=== PATIENT | male | born 2000 | race Two or more races ===

== ENCOUNTER 2024-05-16 02:45 | Emergency (ER) | payer SELFPAY ==
[2024-05-16 03:18] LABS: BASOPHILS ABSOLUTE AUTO 0.05 K/uL (0.00-0.20); BASOPHILS PERCENT AUTO 0.4 % (0.0-1.0); EOSINOPHILS ABSOLUTE AUTO 0.33 K/uL (0.00-0.45); EOSINOPHILS PERCENT AUTO 2.8 % (0.0-6.0); HEMATOCRIT 43.4 % (42.0-52.0); HEMOGLOBIN 14.9 g/dL (14.0-18.0); IMMATURE GRAN ABSOLUTE AUTO 0.04 K/uL (0.00-0.05); IMMATURE GRAN PERCENT AUTO 0.3 % (0.0-0.4); LYMPHOCYTES ABSOLUTE AUTO 6.07 K/uL (1.00-4.80); LYMPHOCYTES PERCENT AUTO 52.2 % (24.0-44.0); MEAN CORPUSCULAR HEMOGLOBIN 30.2 pg (28.0-32.0); MEAN CORPUSCULAR HGB CONC 34.3 g/dL (32.0-36.0); MEAN CORPUSCULAR VOLUME 87.9 fL (83.0-99.0); MEAN PLATELET VOLUME 10.1 fL (9.4-12.4); MONOCYTES ABSOLUTE AUTO 0.71 K/uL (0.00-0.80); MONOCYTES PERCENT AUTO 6.1 % (0.0-8.0); NEUTROPHILS ABSOLUTE AUTO 4.42 K/uL (1.80-7.70); NEUTROPHILS PERCENT AUTO 38.2 % (41.0-71.0); PLATELET COUNT,PLT 204 K/uL (150-400); RED BLOOD CELL COUNT 4.94 M/uL (4.52-5.90); WHITE BLOOD CELL COUNT,WBC 11.62 K/uL (3.9-11.3)
[2024-05-16] MEDS: Sodium Chloride 0.9% 1,000 ML IV ONE (03:20)
[2024-05-16] MEDS: Sodium Chloride 0.9% 10 ML Syringe FLUSH PRN (03:20)
[2024-05-16] MEDS: HYDROmorphone 0.5 MG/0.5 ML Syringe IVPUSH ONE (03:21)
[2024-05-16] MEDS: Ketorolac 30 MG/ML SDV IVPUSH ONE (03:21)
[2024-05-16] MEDS: Ondansetron 4 MG/2 ML SDV IVPUSH ONE (03:21)
[2024-05-16 03:44] LABS: A/G RATIO 1.7 (0.9-1.6); ALBUMIN 4.4 g/dL (3.4-5.0); BILIRUBIN TOTAL 0.7 mg/dL (0.2-1.0); CALCIUM 8.9 mg/dL (8.5-10.1); CARBON DIOXIDE,CO2 30.8 mmol/L (21.0-32.0); CREATININE 0.9 mg/dL (0.8-1.3); EST CRCL DRUG DOSING (CG) 104.71 mL/min; POTASSIUM,K 3.3 mmol/L (3.5-5.1)
[2024-05-16 04:07] LABS: APPEARANCE,URINE HAZY; BILIRUBIN,URINE NEGATIVE (NEGATIVE); COLOR,URINE YELLOW; GLUCOSE,URINE NEGATIVE (NEGATIVE); KETONES,URINE NEGATIVE (NEGATIVE); LEUKOCYTE ESTERASE,URINE NEGATIVE (NEGATIVE); NITRITE,URINE NEGATIVE (NEGATIVE); OCCULT BLOOD,URINE LARGE (NEGATIVE); PROTEIN,URINE TRACE mg/dL (NEGATIVE); UROBILINOGEN,URINE 0.2 EU/dL (<2.0)
[2024-05-16] MEDS: Acetaminophen 500 MG Tab PO ONE (04:10)
[2024-05-16] MEDS: Tamsulosin 0.4 MG Cap.ER PO ONE (04:10)
[2024-05-16 04:13] LABS: BACTERIA,URINE FEW (NEGATIVE); EPITHELIAL CELLS,URINE RARE (NONE-FEW); MUCUS,URINE MODERATE (NONE-MOD); WBC,URINE 0-1 (0-5/HPF)
[2024-05-16] MEDS ORDERED: oxyCODONE 5 MG Tab PO PRN (04:17)
== END 2024-05-16 06:31 | disposition home or self-care (01) ==
LOC: MW.ED 02:45
DX: N13.2 Hydronephrosis with renal and ureteral calculous obstruction (principal); N23 Unspecified renal colic
CPT/HCPCS: 36415; 74176; 80053; 81001; 83605; 83690; 85025; 96361; 96374; 96375; 99284; A9270; J1171; J1885; J2405; J3490; J7030

== ENCOUNTER 2025-02-04 23:04 | Emergency (ER) | payer SELFPAY ==
[2025-02-04] MEDS: Ketorolac 30 MG/ML SDV IM ONE (23:52)
[2025-02-04] MEDS: Ondansetron 4 MG Tab.DIS PO ONE (23:53)
== END 2025-02-05 00:21 | disposition home or self-care (01) ==
LOC: MW.ED 23:04
DX: S09.90XA Unspecified injury of head, initial encounter (principal); S16.1XXA Strain of muscle, fascia and tendon at neck level, initial encounter; Y04.0XXA Assault by unarmed brawl or fight, initial encounter
CPT/HCPCS: 70450; 72125; 96372; 99284; A9270; J1885; 99282